=== PATIENT | female | born 1950 | race Caucasian/White ===

== ENCOUNTER 2017-07-11 14:53 | Emergency (ER) | payer OTHER ==
[~2017-07-11] VITALS: Ht 165.1 cm; Wt 61.2 kg
[~2017-07-11 14:53] MED LIST: ACIDOPHILUS1 EAC3 PO; AMOX1TAB12 PO; BISOPROLOL-HCTZ1 TA1; CLARINEX2.5 MG/5 M; CLARITIN10 MG; DILTIAZEM ER120 M1 PO; INTESTINEX680 MG PO; LEVSIN/SL0.125 MG PO; LEVSIN/SL0.125 MG SL; LIPITOR20 MG PO; PEPCID40 MG PO; PROVENTIL HFA6.7 GM IH; QVAR7.3 G1; SINGULAIR 10MG10 MG; SINGULAIR10 MG; TRILIPIX PO; VYTORIN 10-20 M1 TAB; ZANTAC300 MG PO; [UNRECOGNIZED DRUG - OTHER]
[2017-07-11] MEDS ORDERED: ZANTAC300 MG PO (15:45)
== END 2017-07-11 21:49 | disposition home or self-care (01) ==
LOC: ER 14:53
DX: R10.84 Generalized abdominal pain (principal); K31.84 Gastroparesis; K59.09 Other constipation

== ENCOUNTER 2018-03-09 16:37 | Emergency (ER) | payer OTHER ==
[~2018-03-09] VITALS: Ht 165.1 cm; Wt 62.6 kg
[2018-03-09] MEDS ORDERED: XOPENEX0.63 MG/3 (16:55)
[2018-03-09] MEDS ORDERED: ZANTAC150 M3 (16:56)
== END 2018-03-09 22:24 | disposition home or self-care (01) ==
LOC: ER 16:37
DX: K59.09 Other constipation (principal); R10.31 Right lower quadrant pain

== ENCOUNTER 2018-05-12 18:20 | Inpatient (IN) | payer OTHER ==
[~2018-05-12] VITALS: Ht 162.6 cm; Wt 62.6 kg
[~2018-05-12 18:20] MED LIST changes: +XOPENEX0.63 MG/3; +ZANTAC150 M3
--- NOTE | 2018-05-12 18:46 | NUR ---
PTE REFIERE DOLOR ADBOMINAL PELVICO DESDE HOY.
--- NOTE | 2018-05-12 19:23 | NUR ---
MS YE ORIENTA PTE SOBRE TX MEDICO EL CUAL REFIERE ENTENDER.SE LE EXTRAEN MUESTRAS BAJO MEDIDAS ASEPTICAS,SE CANALIZA Y SE ADMINISTRAN MEDICAMENTOS JOE ORDEN MEDICA.
--- NOTE | 2018-05-12 23:33 | NUR ---
PACIENTE ALERTA Y ORIENTADA POR WALLY ESFERAS EN COMPANIA DE FAMILIAR. SE OBSERVA IVF;S PATENTE RIGOBERTO DE EDEMA Y ENROJECIMIENTO BAJANDO UN D5-.45NSS @ 150ML/HR. PACIENTE CON BUEN PATRON RESPIRATORIO Y PIEL TIBIA AL TACTO. PENDIENTE CONSULTA CON DR. BENNETT.
--- NOTE | 2018-05-13 07:16 | NUR ---
SE RECIBE PTE ALERTA Y ORIENTADO X3, COLOCADA EN BELLA CON BARANDAS ELEVADAS Y INTERCOM ACCESIBLE. PTE CON BUEN PATRON RESPIRATORIO. IVF'S PATENTE,RIGOBERTO DE EDEMA O ERITEMA BAJANDO UN D/.45 A 150ML/HR. PTE CONSULTADO CON .
== END 2018-05-17 12:18 | disposition home or self-care (01) | DRG 392 ==
LOC: ER 18:20 → SURG 05-13 15:16 → SEC-K 05-13 15:16 → SURH 05-13 15:16 → SURG 05-16 21:50
PROVIDERS: ADMIT Colon & Rectal Surgery
PROC: BW21Y0Z Computerized Tomography (CT Scan) of Abdomen and Pelvis using Other Contrast, Unenhanced and Enhanced (ICD-10-PCS; principal; 2018-05-13)
DX: K57.30 Diverticulosis of large intestine without perforation or abscess without bleeding (principal); K56.51 Intestinal adhesions [bands], with partial obstruction; N20.0 Calculus of kidney; Z88.2 Allergy status to sulfonamides; Z88.6 Allergy status to analgesic agent; F41.1 Generalized anxiety disorder

== ENCOUNTER 2018-10-31 20:38 | Emergency (ER) | payer OTHER ==
[~2018-10-31] VITALS: Ht 162.6 cm; Wt 62.1 kg
[2018-10-31] MEDS ORDERED: LIVALO2 MG PO (20:58)
[2018-10-31] MEDS ORDERED: LEVSIN/SL0.125 MG SL (20:58)
[2018-11-01] MEDS ORDERED: PERCOCET 5-3251 EACH PO (04:14)
== END 2018-11-01 04:24 | disposition home or self-care (01) ==
LOC: ER 20:38
DX: K29.00 Acute gastritis without bleeding (principal); R10.13 Epigastric pain; G44.209 Tension-type headache, unspecified, not intractable

== ENCOUNTER 2019-04-16 13:56 | Emergency (ER) | payer OTHER ==
[~2019-04-16] VITALS: Ht 162.6 cm; Wt 64.0 kg
[~2019-04-16 13:56] MED LIST changes: +LIVALO2 MG PO; +PERCOCET 5-3251 EACH PO
== END 2019-04-16 19:19 | disposition home or self-care (01) ==
LOC: ER 13:56
DX: K58.9 Irritable bowel syndrome, unspecified (principal)

== ENCOUNTER 2019-09-07 21:42 | Emergency (ER) | payer OTHER ==
[~2019-09-07] VITALS: Ht 162.6 cm; Wt 65.3 kg
== END 2019-09-08 17:00 | disposition home or self-care (01) ==
LOC: ER 21:42
DX: K56.690 Other partial intestinal obstruction (principal); N20.0 Calculus of kidney; K57.30 Diverticulosis of large intestine without perforation or abscess without bleeding; R10.32 Left lower quadrant pain

== ENCOUNTER 2020-08-17 12:11 | Emergency (ER) | payer OTHER ==
[~2020-08-17] VITALS: Ht 162.6 cm; Wt 65.8 kg
[2020-08-17] MEDS ORDERED: TOPROL XL25 M1 PO (12:23)
[2020-08-17] MEDS ORDERED: CRESTOR10 MG PO (12:23)
== END 2020-08-17 16:37 | disposition home or self-care (01) ==
LOC: ER 12:11
DX: K29.70 Gastritis, unspecified, without bleeding (principal)

== ENCOUNTER 2021-03-07 07:30 | Day surgery (SDC) | payer OTHER ==
[~2021-03-07 07:30] MED LIST changes: +CRESTOR10 MG PO; +TOPROL XL25 M1 PO
== END 2021-03-07 13:50 | disposition home or self-care (01) ==
LOC: AMB-ENDOS 07:30
PROVIDERS: ATTEND Colon & Rectal Surgery
DX: K57.32 Diverticulitis of large intestine without perforation or abscess without bleeding (principal); K64.0 First degree hemorrhoids; Z20.822 Contact with and (suspected) exposure to COVID-19

== ENCOUNTER 2022-04-21 13:16 | Emergency (ER) | payer OTHER ==
[~2022-04-21] VITALS: Ht 160 cm; Wt 68.0 kg
== END 2022-04-21 18:28 | disposition home or self-care (01) ==
LOC: ER 13:16
DX: N23 Unspecified renal colic (principal); Z88.2 Allergy status to sulfonamides; Z88.6 Allergy status to analgesic agent; Z88.1 Allergy status to other antibiotic agents; Z91.041 Radiographic dye allergy status; Z91.018 Allergy to other foods; Z91.013 Allergy to seafood

== ENCOUNTER 2022-09-20 15:00 | Emergency (ER) | payer OTHER ==
[~2022-09-20] VITALS: Ht 167.6 cm; Wt 71.7 kg
== END 2022-09-20 20:51 | disposition home or self-care (01) ==
LOC: ER 15:00
DX: N39.0 Urinary tract infection, site not specified (principal)

== ENCOUNTER 2024-04-08 21:48 | Emergency (ER) | payer OTHER ==
[~2024-04-08] VITALS: Ht 162.6 cm; Wt 64.0 kg
[2024-04-09] MEDS ORDERED: MIRALAX510 GM PO (02:14)
== END 2024-04-09 02:20 | disposition home or self-care (01) ==
LOC: ER 21:51
DX: K59.00 Constipation, unspecified (principal); K57.32 Diverticulitis of large intestine without perforation or abscess without bleeding; Z88.2 Allergy status to sulfonamides; Z91.013 Allergy to seafood; Z91.041 Radiographic dye allergy status; Z91.018 Allergy to other foods; Z98.890 Other specified postprocedural states

== ENCOUNTER 2024-04-09 13:21 | Emergency (ER) | payer OTHER ==
[~2024-04-09] VITALS: Ht 162.6 cm; Wt 64.0 kg
[~2024-04-09 13:21] MED LIST changes: +MIRALAX510 GM PO
[2024-04-09 15:31] LABS: HEMATOCRIT 42.3 % (36.0-45.00); HEMOGLOBIN 14.3 g/dL (12.0-15.00); MEAN CELL VOLUME 92.6 fL (80.00-100.00); MEAN CORPUSCULAR HEMOGLOBIN 31.3 pg (27.00-32.0); MEAN CORPUSCULAR HGB CONC 33.9 g/dl (32.0-36.0); PLATELET COUNT 234 K/uL (150-450); RED BLOOD COUNT 4.57 M/uL (4.00-6.00); RED CELL DISTRIBUTION WIDTH 12.7 % (11.5-14.5)
[2024-04-09 15:54] LABS: CALCIUM 10.1 mg/dL (8.5-10.1); CREATININE SERUM 0.82 mg/dL (0.55-1.02); GFR 68.72; POTASSIUM 4.14 mEq/L (3.5-5.1)
[2024-04-09] MEDS ORDERED: MEPERIDINE HCL/PF 25 MG/ML VIAL IM STA (17:17)
[2024-04-09 18:30] LABS: URINE BILIRRUBIN Negative (NEGATIVE); URINE BLOOD Moderate; URINE COLOR Yellow; URINE GLUCOSE Negative (NEGATIVE); URINE KETONE Trace (NEGATIVE); URINE LEUKOCYTE Negative; URINE NITRATE Negative; URINE PROTEIN Negative (NEGATIVE); URINE UROBILINOGEN 0.2 E.U./dl
[2024-04-09 18:40] LABS: URINE BACTERIA 15.9 uL (0.0-1933); URINE EPITHELIAL CELLS 5.6 uL (0.0-38.8); URINE RBC 8.9 uL (0.0-20.8); URINE WBC 6.1 uL (0.0-23.2)
[2024-04-09 21:33] LABS: URINE APPEARANCE CLEAR
== END 2024-04-09 18:02 | disposition home or self-care (01) ==
LOC: ER 13:24
DX: R10.32 Left lower quadrant pain (principal); Z91.018 Allergy to other foods; Z88.6 Allergy status to analgesic agent; Z88.2 Allergy status to sulfonamides; Z91.041 Radiographic dye allergy status; K57.30 Diverticulosis of large intestine without perforation or abscess without bleeding; N20.0 Calculus of kidney
CPT/HCPCS: 36415; 74176; 96372; 99284; J3490

== ENCOUNTER 2024-05-29 21:42 | Emergency (ER) | payer OTHER ==
[~2024-05-29] VITALS: Ht 162.6 cm; Wt 63.5 kg
[2024-05-29] MEDS ORDERED: ZETIA10 MG (21:51)
[2024-05-29] MEDS ORDERED: FAMOTIDINE/PF 20 MG in 0.9 % SODIUM CHLORIDE 8 ML IV PUSH STA (22:00)
[2024-05-29] MEDS ORDERED: HYOSCYAMINE SULFATE 0.125 MG TAB.SUBL SL ONE (22:15)
[2024-05-29 23:21] LABS: HEMATOCRIT 38.9 % (36.0-45.00); HEMOGLOBIN 13.3 g/dL (12.0-15.00); MEAN CORPUSCULAR HEMOGLOBIN 31.5 pg (27.00-32.0); MEAN CORPUSCULAR HGB CONC 34.2 g/dl (32.0-36.0); PLATELET COUNT 225 K/uL (150-450); RED BLOOD COUNT 4.23 M/uL (4.00-6.00); RED CELL DISTRIBUTION WIDTH 13.1 % (11.5-14.5)
[2024-05-29 23:42] LABS: ALBUMIN 4.1 gm/dL (3.4-5.0); BILIRUBIN TOTAL 0.45 mg/dL (0.3-1.2); CALCIUM 9.6 mg/dL (8.5-10.1); CREATININE SERUM 0.76 mg/dL (0.55-1.02); GFR 75.02; GLOBULINA 3.6 G/DL (2.4-3.5); POTASSIUM 3.9 mEq/L (3.5-5.1); TOTAL PROTEIN 7.7 gm/dL (6.4-8.2)
== END 2024-05-29 23:44 | disposition home or self-care (01) ==
LOC: ER 21:44
PROVIDERS: General Practice
DX: R10.32 Left lower quadrant pain (principal); R10.2 Pelvic and perineal pain; I10 Essential (primary) hypertension; Z91.041 Radiographic dye allergy status

== ENCOUNTER 2024-05-30 04:44 | Emergency (ER) | payer OTHER ==
[~2024-05-30] VITALS: Ht 162.6 cm; Wt 63.5 kg
[~2024-05-30 04:44] MED LIST changes: +ZETIA10 MG
[2024-05-30] MEDS ORDERED: FAMOtidine 10 MG/ML (4ML VIAL) IV PUSH STA (05:42)
[2024-05-30] MEDS ORDERED: HYOSCYAMINE SULFATE 0.125 MG TAB.SUBL SL ONE (05:45)
[2024-05-30] MEDS ORDERED: DIPHENHYDRAMINE HCL 50 MG/ML VIAL 1ML IV STA (06:59)
== END 2024-05-30 08:25 | disposition home or self-care (01) ==
LOC: ER 04:46
DX: K29.70 Gastritis, unspecified, without bleeding (principal); Z88.2 Allergy status to sulfonamides; Z91.041 Radiographic dye allergy status; Z91.013 Allergy to seafood; Z91.018 Allergy to other foods; Z88.6 Allergy status to analgesic agent
CPT/HCPCS: 96365; 99282; J1200; J3490

== ENCOUNTER 2024-05-30 08:24 | Inpatient (IN) | payer OTHER ==
[~2024-05-30] VITALS: Ht 162.6 cm; Wt 63.5 kg
--- NOTE | 2024-05-30 08:39 | NUR ---
PTE ALERTA Y ORIENTADA VERBALIZA QUE VISITO LA ASIF DE EMERGENCIA EN LE JARON DE HENOK LA DIERON DE ELVIRA Y LA MISMA REGRESA POR SINTOMAS CONTINUOS. SE LE CHRIS S/V ESTABLES Y SE UBICA EN PASILLO.
[2024-05-30] MEDS ORDERED: ACETAMINOPHEN 325 MG TABLET PO ONE (09:00)
[2024-05-30] MEDS ORDERED: METHYLPREDNISOLONE SOD SUCC 40 MG VIAL IV ONE (09:15)
[2024-05-30 09:59] LABS: HEMATOCRIT 39.3 % (36.0-45.00); HEMOGLOBIN 13.3 g/dL (12.0-15.00); MEAN CELL VOLUME 91.7 fL (80.00-100.00); MEAN CORPUSCULAR HEMOGLOBIN 31.1 pg (27.00-32.0); PLATELET COUNT 204 K/uL (150-450); RED BLOOD COUNT 4.28 M/uL (4.00-6.00); RED CELL DISTRIBUTION WIDTH 12.8 % (11.5-14.5)
--- NOTE | 2024-05-30 10:00 | NUR ---
PACIENTE EVALUADO POR QUIEN ORDENA TRATAMIENTO MEDICO, SE LE ORIENTA A PACIENTE SOBRE EL MISMO Y REFIERE ENTENDER, SE LE COLECTAN MUESTRAS DE LABORATORIO Y SE CANALIZA BAJO MEDIDAS ASEPTICAS. SE LE ADMINISTRAN MEDICAMENTOS JOE ORDEN. PACIENTE TOELRA Y SE MANTIENE BAJO OBSERVACION POR CAMBIOS EN GARCIA CONDICION.
[2024-05-30 10:11] LABS: ERYTHROCYTE SEDIMENTATION RATE 3 mm/hr
[2024-05-30 10:15] LABS: URINE APPEARANCE Clear; URINE BILIRRUBIN Negative (NEGATIVE); URINE BLOOD Small; URINE COLOR Yellow; URINE GLUCOSE Negative (NEGATIVE); URINE KETONE Negative (NEGATIVE); URINE LEUKOCYTE Negative; URINE NITRATE Negative; URINE PROTEIN Negative (NEGATIVE); URINE UROBILINOGEN 0.2 E.U./dl
[2024-05-30 10:17] LABS: URINE BACTERIA 24.4 uL (0.0-1933); URINE EPITHELIAL CELLS 4.2 uL (0.0-38.8); URINE RBC 2.7 uL (0.0-20.8); URINE WBC 2.6 uL (0.0-23.2)
[2024-05-30 10:24] LABS: ALKALINE PHOSPHATASE 112 U/L (50-136); ALT/SGPT 17 U/L (12-78); AMYLASE 27 U/L (25-115); ANION GAP 5 (10.0-20.0); AST/SGOT 16 U/L (15-37); BILIRUBIN TOTAL 0.99 mg/dL (0.3-1.2); BILIRUBIN,CONJUGATED 0.19 mg/dL (0.0-0.2); BLOOD UREA NITROGEN 12 mg/dL (7-18); BUN CREA RATIO 17 (7.0-25.0); CALCIUM 9.5 mg/dL (8.5-10.1); CARBON DIOXIDE 30 mEq/L (21-32); CHLORIDE 109 mmol/L (98-107); CREATININE SERUM 0.71 mg/dL (0.55-1.02); GFR 81.15; GLOBULINA 3.3 G/DL (2.4-3.5); GLUCOSE FASTING 123 mg/dL (65-100); LIPASE 21 U/L (13-75); OSMOLALITY SERUM 281 MOSM/KG (275-295); POTASSIUM 4.17 mEq/L (3.5-5.1); SODIUM 140 mmol/L (136-145); TOTAL PROTEIN 7.3 gm/dL (6.4-8.2)
[2024-05-30 10:25] LABS: C-REACTIVE PROTEIN < 0.29 MG/DL (0.00-0.29)
[2024-05-30 10:27] LABS: INR 0.98; PROTHROMBIN TIME 10.7 SECONDS (9.0-11.5)
[2024-05-30 10:34] LABS: PARTIAL THROMBOPLASTIN TIME < 20.0 SECONDS (22.0-34.0)
[2024-05-30] MEDS ORDERED: 0.9 % SODIUM CHLORIDE 1,000 ML IV SCH ×2 (13:45→21:30)
[2024-05-30 20:30] LABS: HEMATOCRIT 40.4 % (36.0-45.00); HEMOGLOBIN 13.4 g/dL (12.0-15.00); MEAN CELL VOLUME 93.6 fL (80.00-100.00); MEAN CORPUSCULAR HGB CONC 33.1 g/dl (32.0-36.0); PLATELET COUNT 217 K/uL (150-450); RED BLOOD COUNT 4.32 M/uL (4.00-6.00); RED CELL DISTRIBUTION WIDTH 12.8 % (11.5-14.5)
[2024-05-30] MEDS ORDERED: CLINDAMYCIN PHOSPHATE 600 MG in DEXTROSE 5 % IN WATER 50 ML IV SCH (21:27)
[2024-05-30] MEDS ORDERED: DIPHENHYDRAMINE HCL 50 MG/ML VIAL 1ML IV PRN (21:30)
[2024-05-30 21:42] VITALS: BP 130/80
[2024-05-31 04:06] VITALS: BP 102/61; O2SAT 96
[2024-05-31 05:20] LABS: HEMOGLOBIN 12.5 g/dL (12.0-15.00); MEAN CELL VOLUME 92.9 fL (80.00-100.00); MEAN CORPUSCULAR HEMOGLOBIN 31.3 pg (27.00-32.0); MEAN CORPUSCULAR HGB CONC 33.7 g/dl (32.0-36.0); PLATELET COUNT 192 K/uL (150-450); RED BLOOD COUNT 3.98 M/uL (4.00-6.00); RED CELL DISTRIBUTION WIDTH 12.7 % (11.5-14.5)
[2024-05-31 06:11] LABS: ALBUMIN 3.4 gm/dL (3.4-5.0); BILIRUBIN TOTAL 0.4 mg/dL (0.3-1.2); CREATININE SERUM 0.59 mg/dL (0.55-1.02); GFR 100.48; GLOBULINA 2.9 G/DL (2.4-3.5); MAGNESIUM 1.8 mg/dL (1.8-2.4); PHOSPHOROUS 2.6 mg/dL (2.5-4.9); POTASSIUM 3.81 mEq/L (3.5-5.1); TOTAL PROTEIN 6.3 gm/dL (6.4-8.2)
[2024-05-31 06:16] LABS: C-REACTIVE PROTEIN 2.45 MG/DL (0.00-0.29)
[2024-05-31 06:18] LABS: TSH 0.203 uIU/mL (0.358-3.74)
[2024-05-31] MEDS ORDERED: FAMOTIDINE/PF 20 MG/2 ML VIAL IV SCH (09:00)
[2024-05-31 09:26] VITALS: BP 108/50; O2SAT 97
[2024-05-31] MEDS ORDERED: AZITHROMYCIN 500 MG VIAL IV SCH (12:00)
[2024-05-31] MEDS ORDERED: CLINDAMYCIN PHOSPHATE 600 MG in 0.9 % SODIUM CHLORIDE 50 ML IV SCH (13:00)
[2024-05-31 19:17] VITALS: BP 107/53
[2024-06-01 01:31] VITALS: BP 97/50; O2SAT 99
[2024-06-01 04:33] VITALS: BP 109/67
[2024-06-01 08:39] VITALS: BP 121/61; O2SAT 98
[2024-06-01 11:23] LABS: HEMATOCRIT 36.4 % (36.0-45.00); HEMOGLOBIN 12.4 g/dL (12.0-15.00); MEAN CELL VOLUME 92.2 fL (80.00-100.00); MEAN CORPUSCULAR HEMOGLOBIN 31.4 pg (27.00-32.0); MEAN CORPUSCULAR HGB CONC 34.1 g/dl (32.0-36.0); PLATELET COUNT 147 K/uL (150-450); RED BLOOD COUNT 3.95 M/uL (4.00-6.00); RED CELL DISTRIBUTION WIDTH 13.5 % (11.5-14.5)
[2024-06-01] MEDS ORDERED: HYOSCYAMINE0.125 M1 SL (13:30)
== END 2024-06-01 13:57 | disposition home or self-care (01) | DRG 392 ==
LOC: ER 08:26 → MEDI 23:16
PROVIDERS: General Practice; ADMIT Internal Medicine Geriatric Medicine; ATTEND Internal Medicine Geriatric Medicine
DX: K58.8 Other irritable bowel syndrome (principal); E86.0 Dehydration; D84.1 Defects in the complement system; K57.30 Diverticulosis of large intestine without perforation or abscess without bleeding

== ENCOUNTER 2024-06-15 21:34 | Emergency (ER) | payer OTHER ==
[~2024-06-15] VITALS: Ht 162.6 cm; Wt 61.2 kg
[~2024-06-15 21:34] MED LIST changes: +HYOSCYAMINE0.125 M1 SL
[2024-06-16] MEDS ORDERED: 0.9 % SODIUM CHLORIDE 1,000 ML IV STA (00:22)
[2024-06-16] MEDS ORDERED: PROMETHAZINE HCL 50 MG/ML AMPUL IM STA (00:24)
[2024-06-16 00:38] LABS: HEMATOCRIT 40.9 % (36.0-45.00); HEMOGLOBIN 14.1 g/dL (12.0-15.00); MEAN CELL VOLUME 91.6 fL (80.00-100.00); MEAN CORPUSCULAR HEMOGLOBIN 31.6 pg (27.00-32.0); MEAN CORPUSCULAR HGB CONC 34.5 g/dl (32.0-36.0); PLATELET COUNT 230 K/uL (150-450); RED BLOOD COUNT 4.46 M/uL (4.00-6.00); RED CELL DISTRIBUTION WIDTH 13.1 % (11.5-14.5)
[2024-06-16 00:59] LABS: INR 0.96; PARTIAL THROMBOPLASTIN TIME 27.5 SECONDS (22.0-34.0); PROTHROMBIN TIME 10.5 SECONDS (9.0-11.5)
[2024-06-16 01:04] LABS: BILIRUBIN TOTAL 0.36 mg/dL (0.3-1.2); CALCIUM 10.1 mg/dL (8.5-10.1); CREATININE SERUM 0.79 mg/dL (0.55-1.02); GFR 71.74; GLOBULINA 4.4 G/DL (2.4-3.5); POTASSIUM 3.84 mEq/L (3.5-5.1); TOTAL PROTEIN 8.4 gm/dL (6.4-8.2)
[2024-06-16 01:07] LABS: URINE APPEARANCE Clear; URINE BILIRRUBIN Negative (NEGATIVE); URINE BLOOD Small; URINE COLOR Yellow; URINE GLUCOSE Negative (NEGATIVE); URINE KETONE Negative (NEGATIVE); URINE LEUKOCYTE Negative; URINE NITRATE Negative; URINE PROTEIN Negative (NEGATIVE); URINE UROBILINOGEN 0.2 E.U./dl
[2024-06-16 01:11] LABS: URINE EPITHELIAL CELLS 3.4 uL (0.0-38.8); URINE RBC 36.6 uL (0.0-20.8); URINE WBC 4.5 uL (0.0-23.2)
[2024-06-16 01:14] LABS: URINE BACTERIA 1.2 uL (0.0-1933)
[2024-06-16] MEDS ORDERED: MEPERIDINE HCL/PF 50 MG/ML VIAL IM STA (03:58)
[2024-06-16] MEDS ORDERED: DIPHENHYDRAMINE HCL 50 MG/ML VIAL 1ML IM STA (03:59)
[2024-06-16] MEDS ORDERED: POLYETHYLENE GLYCOL 3350 17 GM BLIST.PACK PO STA (06:46)
[2024-06-16] MEDS ORDERED: POLYETHYLENE GLYCOL 3350 17 GM BLIST.PACK PO ONE (14:15)
== END 2024-06-16 15:57 | disposition home or self-care (01) ==
LOC: ER 21:34
DX: R10.9 Unspecified abdominal pain (principal); Z91.041 Radiographic dye allergy status
CPT/HCPCS: 36415; 74022; 74176; 96365; 96366; 96372; 99284; J1200; J2550; J3490; J7030

== ENCOUNTER 2024-12-16 12:11 | Emergency (ER) | payer OTHER ==
[~2024-12-16] VITALS: Ht 162.6 cm; Wt 61.2 kg
[2024-12-16] MEDS ORDERED: CRESTOR40 MG PO (12:23)
[2024-12-16 13:46] LABS: BASO % 0.4 % (0.1-1.2); EOS # 0.02 (0.04-0.54); EOS % 0.3 % (0.7-7.0); LYMPH # 1.07 (1.18-3.74); LYMPH % 15.9 % (19.3-53.1); MEAN PLATELET VOLUME 10.00 fl (9.4-12.4); MONO # 0.33 (0.24-0.82); MONO % 4.9 % (4.7-12.5); NEUT # 5.29 (1.56-6.13); NEUT % 78.4 % (34.0-71.1); RED CELL DISTRIBUTION WIDTH 12.8 % (11.6-14.4)
[2024-12-16 13:55] LABS: COVID-19 AG NEGATIVE (NEGATIVE)
[2024-12-16 13:58] LABS: ALT/SGPT 17.0 U/L (12-78); AST/SGOT 14.0 U/L (15-37); BILIRUBIN TOTAL 0.34 mg/dL (0.3-1.2); BUN CREA RATIO 15.0 (7.0-25.0); CREATININE SERUM 0.72 mg/dL (0.55-1.02); GFR 79.62; GLOBULINA 3.2 G/DL (2.4-3.5); GLUCOSE FASTING 149.0 mg/dL (65-100); OSMOLALITY SERUM 285.0 MOSM/KG (275-295)
== END 2024-12-16 15:07 | disposition home or self-care (01) ==
LOC: ER 12:11
PROVIDERS: General Practice
DX: R53.1 Weakness (principal); Z88.8 Allergy status to other drugs, medicaments and biological substances; Z87.09 Personal history of other diseases of the respiratory system

== ENCOUNTER 2024-12-28 09:07 | Emergency (ER) | payer OTHER ==
[~2024-12-28] VITALS: Ht 162.6 cm; Wt 61.2 kg
[~2024-12-28 09:07] MED LIST changes: +CRESTOR40 MG PO
[2024-12-28] MEDS ORDERED: ONDANSETRON HCL 4 MG in 0.9 % SODIUM CHLORIDE 50 ML IV ONE (09:45)
[2024-12-28] MEDS ORDERED: ACETAMINOPHEN 500 MG GEL..CAP PO ONE ×2 (09:45→10:01)
[2024-12-28] MEDS ORDERED: 0.9 % SODIUM CHLORIDE 1,000 ML IV SCH (09:45)
[2024-12-28] MEDS ORDERED: FAMOTIDINE/PF 20 MG in 0.9 % SODIUM CHLORIDE 8 ML IV PUSH ONE (09:45)
[2024-12-28] MEDS ORDERED: ONDANSETRON HCL 2 MG/ML VIAL ONE (10:01)
[2024-12-28] MEDS ORDERED: FAMOTIDINE/PF 20 MG/2 ML VIAL ONE (10:01)
[2024-12-28 10:18] LABS: BASO % 0.3 % (0.1-1.2); EOS # 0.03 (0.04-0.54); EOS % 0.3 % (0.7-7.0); LYMPH # 1.22 (1.18-3.74); LYMPH % 13.6 % (19.3-53.1); MEAN PLATELET VOLUME 10.10 fl (9.4-12.4); MONO # 0.64 (0.24-0.82); MONO % 7.1 % (4.7-12.5); NEUT # 7.04 (1.56-6.13); NEUT % 78.5 % (34.0-71.1); RED CELL DISTRIBUTION WIDTH 13.0 % (11.6-14.4)
[2024-12-28 10:33] LABS: ERYTHROCYTE SEDIMENTATION RATE 11 mm/hr (0-30)
[2024-12-28 10:40] LABS: INR 0.98
[2024-12-28 10:43] LABS: ALT/SGPT 17.0 U/L (12-78); AST/SGOT 12.0 U/L (15-37); BILIRUBIN TOTAL 0.96 mg/dL (0.3-1.2); BUN CREA RATIO 18.0 (7.0-25.0); CREATININE SERUM 0.68 mg/dL (0.55-1.02); GFR 85.05; GLOBULINA 3.4 G/DL (2.4-3.5); GLUCOSE FASTING 112.0 mg/dL (65-100); OSMOLALITY SERUM 284.0 MOSM/KG (275-295)
[2024-12-28 10:50] LABS: URINE APPEARANCE Cloudy; URINE BILIRRUBIN Negative (NEGATIVE); URINE BLOOD Moderate; URINE COLOR Yellow; URINE GLUCOSE Negative (NEGATIVE); URINE KETONE Negative (NEGATIVE); URINE LEUKOCYTE Small; URINE NITRATE Negative; URINE PROTEIN Negative (NEGATIVE); URINE UROBILINOGEN 0.2 E.U./dl
[2024-12-28 10:51] LABS: URINE BACTERIA 72.0 uL (0.0-1933); URINE EPITHELIAL CELLS 15.9 uL (0.0-38.8); URINE RBC 145.3 uL (0.0-20.8); URINE WBC 20.6 uL (0.0-23.2)
[2024-12-28 11:31] LABS: URINE CAST 0.29 uL (0.0-1.40); URINE CRYSTALS FEW /HPF; URINE MUCUS SCANT; URINE YEAST FEW /hpf
== END 2024-12-28 12:55 | disposition home or self-care (01) ==
LOC: ER 09:07
PROVIDERS: General Practice
DX: K57.32 Diverticulitis of large intestine without perforation or abscess without bleeding (principal); R10.32 Left lower quadrant pain; Z88.2 Allergy status to sulfonamides; Z88.1 Allergy status to other antibiotic agents; Z91.013 Allergy to seafood; Z88.6 Allergy status to analgesic agent; Z91.018 Allergy to other foods; Z91.041 Radiographic dye allergy status; K58.8 Other irritable bowel syndrome; E78.49 Other hyperlipidemia
CPT/HCPCS: 36415; 74176; 96365; 99284; J2405

== ENCOUNTER 2024-12-30 08:10 | Emergency (ER) | payer OTHER ==
[~2024-12-30] VITALS: Ht 162.6 cm; Wt 61.2 kg
[2024-12-30] MEDS ORDERED: 0.9 % SODIUM CHLORIDE 1,000 ML IV STA (09:05)
[2024-12-30] MEDS ORDERED: LACTOBACILLUS ACIDOPHILUS 1 CAP CAP PO STA (09:05)
[2024-12-30] MEDS ORDERED: FAMOTIDINE/PF 20 MG/2 ML VIAL IV PUSH STA (09:05)
[2024-12-30] MEDS ORDERED: PIPERACILLIN/TAZOBACTAM SODIUM 3.375 GM VIAL IV STA (09:17)
[2024-12-30] MEDS ORDERED: LACTOBACILLUS ACIDOPHILUS 1 CAP CAP PO ONE (09:35)
[2024-12-30] MEDS ORDERED: FAMOTIDINE/PF 20 MG/2 ML VIAL ONE ×2 (09:35→09:37)
[2024-12-30] MEDS ORDERED: PIPERACILLIN/TAZOBACTAM SODIUM 3.375 GM VIAL IV ONE (09:35)
[2024-12-30] MEDS ORDERED: PANTOPRAZOLE SODIUM 4 MG/ML REDILUIDO IV PUSH STA (10:03)
[2024-12-30 10:07] LABS: BASO % 0.2 % (0.1-1.2); EOS # 0.03 (0.04-0.54); EOS % 0.3 % (0.7-7.0); LYMPH # 0.97 (1.18-3.74); LYMPH % 9.7 % (19.3-53.1); MEAN PLATELET VOLUME 9.80 fl (9.4-12.4); MONO # 0.57 (0.24-0.82); MONO % 5.7 % (4.7-12.5); NEUT # 8.36 (1.56-6.13); NEUT % 83.9 % (34.0-71.1); RED CELL DISTRIBUTION WIDTH 12.6 % (11.6-14.4)
[2024-12-30 10:26] LABS: ALT/SGPT 17.0 U/L (12-78); AST/SGOT 10.0 U/L (15-37); BILIRUBIN TOTAL 0.67 mg/dL (0.3-1.2); BUN CREA RATIO 15.0 (7.0-25.0); CREATININE SERUM 0.73 mg/dL (0.55-1.02); GFR 78.37; GLOBULINA 3.6 G/DL (2.4-3.5); GLUCOSE FASTING 100.0 mg/dL (65-100); OSMOLALITY SERUM 281.0 MOSM/KG (275-295)
== END 2024-12-30 11:22 | disposition home or self-care (01) ==
LOC: ER 08:10
PROVIDERS: General Practice
DX: K29.70 Gastritis, unspecified, without bleeding (principal); Z88.8 Allergy status to other drugs, medicaments and biological substances
CPT/HCPCS: 36415; 96365; 99282; J2543; J3490; J7030

== ENCOUNTER 2025-03-08 16:34 | Emergency (ER) | payer OTHER ==
[~2025-03-08] VITALS: Ht 163.8 cm; Wt 57.6 kg
[2025-03-08 18:23] LABS: BASO % 0.4 % (0.1-1.2); EOS # 0.06 (0.04-0.54); EOS % 0.9 % (0.7-7.0); LYMPH # 1.86 (1.18-3.74); LYMPH % 26.6 % (19.3-53.1); MEAN PLATELET VOLUME 9.50 fl (9.4-12.4); MONO # 0.49 (0.24-0.82); MONO % 7.0 % (4.7-12.5); NEUT # 4.53 (1.56-6.13); NEUT % 65.0 % (34.0-71.1); RED CELL DISTRIBUTION WIDTH 12.6 % (11.6-14.4)
[2025-03-08 18:31] LABS: URINE APPEARANCE Clear; URINE BILIRRUBIN Negative (NEGATIVE); URINE BLOOD Moderate; URINE COLOR Yellow; URINE GLUCOSE Negative (NEGATIVE); URINE KETONE Negative (NEGATIVE); URINE LEUKOCYTE Moderate; URINE NITRATE Negative; URINE PROTEIN Negative (NEGATIVE); URINE UROBILINOGEN 0.2 E.U./dl
[2025-03-08 18:32] LABS: URINE BACTERIA 91.4 uL (0.0-1933); URINE EPITHELIAL CELLS 15.3 uL (0.0-38.8); URINE RBC 61.4 uL (0.0-20.8); URINE WBC 51.3 uL (0.0-23.2)
[2025-03-08 18:42] LABS: URINE CAST 0.14 uL (0.0-1.40)
[2025-03-08 19:04] LABS: BUN CREA RATIO 26.0 (7.0-25.0); CREATININE SERUM 0.61 mg/dL (0.55-1.02); GFR 96.41; GLUCOSE FASTING 97.0 mg/dL (65-100); OSMOLALITY SERUM 288.0 MOSM/KG (275-295)
== END 2025-03-08 19:57 | disposition home or self-care (01) ==
LOC: ER 16:35
PROVIDERS: General Practice
DX: M54.42 Lumbago with sciatica, left side (principal); Z91.041 Radiographic dye allergy status; Z88.2 Allergy status to sulfonamides; Z88.6 Allergy status to analgesic agent; Z91.013 Allergy to seafood; Z91.018 Allergy to other foods; K57.30 Diverticulosis of large intestine without perforation or abscess without bleeding; M51.369 Other intervertebral disc degeneration, lumbar region without mention of lumbar back pain or lower extremity pain; M26.69 Other specified disorders of temporomandibular joint